=== PATIENT | female | born 1990 | race Caucasian/White ===

== ENCOUNTER 2023-04-25 08:18 | Emergency (ER) | payer MEDICAID | END 2023-04-25 08:40 | disposition home or self-care (01) | LOC: VM.ED 08:18 | DX: H66.93 Otitis media, unspecified, bilateral (principal) | CPT/HCPCS: 99283 ==

== ENCOUNTER 2024-03-11 10:39 | Emergency (ER) | payer OTHER ==
[2024-03-11 11:40] LABS: BILIRUBIN,URINE NEGATIVE (NEGATIVE); COLOR,URINE DARK YELLOW (YELLOW); GLUCOSE,URINE NEGATIVE (NEGATIVE); KETONES,URINE NEGATIVE (NEGATIVE); LEUKOCYTE ESTERASE,URINE NEGATIVE (NEGATIVE); NITRITE,URINE NEGATIVE (NEGATIVE); OCCULT BLOOD,URINE NEGATIVE (NEGATIVE); PROTEIN,URINE TRACE mg/dL (NEGATIVE); UROBILINOGEN,URINE 0.2 EU/dL (0.2)
[2024-03-11 11:51] LABS: APPEARANCE,URINE CLOUDY (CLEAR); BACTERIA,URINE OCCASIONAL /HPF (NOT SEEN); MUCUS,URINE MODERATE /LPF (NOT SEEN); RBC,URINE 0-5 /HPF (NOT SEEN); SQUAMOUS EPITHELIAL CELLS,UR MANY /HPF (NOT SEEN); WBC,URINE 0-5 /HPF (NOT SEEN)
[2024-03-11 12:12] LABS: BASOPHILS PERCENT AUTO 0.3 % (0.2-1.2); EOSINOPHILS ABSOLUTE AUTO 0.1 x10^3/uL (0.0-0.5); EOSINOPHILS PERCENT AUTO 1.4 % (0.0-4.0); HEMATOCRIT 32.8 % (33.0-47.0); HEMOGLOBIN 11.1 g/dL (12.0-16.0); IMMATURE GRAN ABSOLUTE AUTO 0.29 x10^3/uL (0.00-0.07); LYMPHOCYTES ABSOLUTE AUTO 1.8 x10^3/uL (1.0-4.8); LYMPHOCYTES PERCENT AUTO 22.5 % (25.0-50.0); MEAN CORPUSCULAR HEMOGLOBIN 28.3 pg (26.0-32.0); MEAN CORPUSCULAR HGB CONC 33.8 g/dL (32.0-36.0); MEAN CORPUSCULAR VOLUME 83.7 fL (78.0-93.0); MONOCYTES ABSOLUTE AUTO 0.7 x10^3/uL (0.0-0.8); MONOCYTES PERCENT AUTO 8.3 % (2.0-11.0); NEUTROPHILS PERCENT AUTO 63.8 % (50.0-80.0); PLATELET COUNT,PLT 152 x10^3/uL (130-400); RED BLOOD CELL COUNT 3.92 x10^6/uL (4.00-5.50); WHITE BLOOD CELL COUNT,WBC 7.9 x10^3/uL (4.0-10.0)
[2024-03-11 12:52] LABS: A/G RATIO 0.65; ALBUMIN 2.6 g/dL (3.4-5.0); BILIRUBIN TOTAL 0.2 mg/dL (0.2-1.0); CALCIUM 8.5 mg/dL (8.5-10.1); CREATININE 0.5 mg/dL (0.55-1.02); EST CRCL DRUG DOSING (CG) 145.35 mL/min; MAGNESIUM 1.5 mg/dL (1.8-2.4); POTASSIUM,K 3.7 mmol/L (3.5-5.1); PROTEIN TOTAL,TP 6.6 g/dL (6.4-8.2)
[2024-03-11 12:53] LABS: ANION GAP 14.7 mmol/L (5-15)
[2024-03-11] MEDS ORDERED: Magnesium Oxide 400 MG Tab PO ONE (12:54)
[2024-03-12 05:07] LABS: URINE PROTEIN 18 mg/dL (1-14)
== END 2024-03-11 13:05 | disposition home or self-care (01) ==
LOC: VM.ED 10:39
DX: R42 Dizziness and giddiness (principal); Z79.2 Long term (current) use of antibiotics; Z79.899 Other long term (current) drug therapy
CPT/HCPCS: 36415; 80053; 81001; 82570; 83735; 84156; 84484; 85025; 93005; 99285